=== PATIENT | female | born 1985 | race Caucasian/White ===

== ENCOUNTER → 2016-11-05 | Outpatient (CLI) | payer OTHER ==
[~2016-11-05] MED LIST: CETI10TA PO; IBUP60TA PO; LEVO300T3 PO; NORCOTAB PO; advair INH; nuvaring; ventolin inhaler
--- NOTE | 2016-11-05 09:20 | REP ---
ABDOMINAL RIGHT UPPER QUADRANT ULTRASOUND: There is no cholelithiasis, gallbladder wall thickening or pericholecystic fluid. There is no intrahepatic or extrahepatic biliary duct dilatation, the common duct is 3.7 mm diameter. The hepatic parenchymal demonstrates a 7.4 mm hyperechoic nodule in the dome of the liver. By ultrasound, this is compatible with hemangioma, however, MRI confirmation is recommended. The remainder of the hepatic parenchymal is homogeneous and unremarkable. The visualized portion of the pancreatic head is unremarkable. The right kidney is normal size measuring 11.0 cm craniocaudad. There is a nonobstructive calculus in the upper pole measuring 3.7 mm. There is no hydronephrosis. There is no renal mass or cyst. IMPRESSION: No cholelithiasis or biliary duct dilatation. 7.4 mm hyperechoic nodule in the hepatic dome compatible with hemangioma by ultrasound. MRI confirmation is recommended. Nonobstructive 3.7 mm right renal upper pole calculus. No hydronephrosis. Signed by Franklyn Duarte MD 11/06/2016 05:19 P
== END ==
LOC: M RAD 06:53
PROVIDERS: ATTEND Internal Medicine Endocrinology, Diabetes & Metabolism
DX: R11.0 Nausea (principal); N20.0 Calculus of kidney; K76.89 Other specified diseases of liver

== ENCOUNTER 2017-01-25 11:56 | Emergency (ER) | payer OTHER, MEDICAID ==
[~2017-01-25] VITALS: Ht 157.5 cm; Wt 69.9 kg
[2017-01-25] MEDS ORDERED: BREO1INH3 INH (12:08)
[2017-01-25] MEDS ORDERED: METF1000 PO (12:08)
[2017-01-25] MEDS ORDERED: TYLE500T78 PO (12:08)
[2017-01-25] MEDS ORDERED: NS 1,000 ML IV ONE (12:30)
[2017-01-25] MEDS ORDERED: ONDANSETRON 4MG/2ML VIAL (J2405) IV ONE (12:30)
[2017-01-25] MEDS ORDERED: KETOROLAC 30 MG/ML VIAL (J1885) IV ONE (12:30)
[2017-01-25 13:41] LABS: BASO % 0.8 % (0.0-1.0); EOS # 0.2 K/mm3 (0.0-0.50); EOS % 4.2 % (0.0-3.0); LARGE UNSTAINED CELL # 0.2 K/mm3 (0.0-0.4); LARGE UNSTAINED CELL % 2.5 % (0.0-4.0); LYMPH # 2.2 K/mm3 (1.5-4.5); LYMPH % 33.2 % (24.0-44.0); MEAN CORPUSCULAR HEMOGLOBIN 28.8 pg (27.0-33.0); MEAN CORPUSCULAR HGB CONC 31.7 g/dl (32.0-36.5); MONO # 0.3 K/mm3 (0.0-0.8); MONO % 4.8 % (0.0-5.0); NEUTROPHILS # 3.3 K/mm3 (1.8-7.7); NEUTROPHILS % 54.6 % (36.0-66.0); PLATELET COUNT, AUTOMATED 254 k/mm3 (150-450); RED CELL DISTRIBUTION WIDTH 13.2 % (11.5-14.5)
[2017-01-25 14:05] LABS: ALBUMIN/GLOBULIN RATIO 1.21 (1.00-1.93); ALKALINE PHOSPHATASE 66 U/L (45-117); ALT/SGPT 26 U/L (12-78); ANION GAP 8 MEQ/L (8-16); AST/SGOT 20 U/L (15-37); BILIRUBIN,DIRECT 0.1 MG/DL (0.0-0.2); BILIRUBIN,TOTAL 0.3 MG/DL (0.2-1.0); BLOOD UREA NITROGEN 9 MG/DL (7-18); CALCIUM LEVEL 8.8 MG/DL (8.5-10.1); CARBON DIOXIDE LEVEL 27 MEQ/L (21-32); CHLORIDE LEVEL 106 MEQ/L (98-107); CREATININE FOR GFR 0.76 MG/DL (0.55-1.02); GLOMERULAR FILTRATION RATE > 60.0 (>60); GLUCOSE, FASTING 86 MG/DL (70-105); POTASSIUM SERUM 3.9 MEQ/L (3.5-5.1); SODIUM LEVEL 141 MEQ/L (136-145); TOTAL PROTEIN 7.3 GM/DL (6.4-8.2)
[2017-01-25] MEDS ORDERED: BENT20TA PO (14:12)
[2017-01-25 14:35] VITALS: BP 128/69
--- NOTE | 2017-01-25 15:03 | REP ---
CT ABDOMEN AND PELVIS WITHOUT IV CONTRAST: CT abdomen and pelvis performed without oral or IV contrast, with sagittal and coronal reconstruction images performed Visualized lung bases are clear. The liver, spleen, adrenals, pancreas and kidneys are grossly unremarkable. No renal, ureteral , or bladder calculus is seen. There is on evidence of hydroureteronephrosis. There is no abdominal aortic aneurysm. No gross adenopathy is seen. No gross bowel wall thickening is seen. There is no evidence of appendicitis. No gross pelvic mass is seen. IMPRESSION: No CT evidence of renal, ureteral or bladder calculus and no evidence of hydroureteronephrosis. No evidence of appendicitis. No definite free air or free fluid. Signed by Franklyn Wade MD 01/25/2017 04:45 P
== END 2017-01-25 14:36 | disposition home or self-care (01) ==
LOC: M ED 12:52
DX: R10.11 Right upper quadrant pain (principal); R10.31 Right lower quadrant pain; E11.9 Type 2 diabetes mellitus without complications; N83.299 Other ovarian cyst, unspecified side; Z87.891 Personal history of nicotine dependence; J30.2 Other seasonal allergic rhinitis; Z79.84 Long term (current) use of oral hypoglycemic drugs; Z79.899 Other long term (current) drug therapy; Z88.1 Allergy status to other antibiotic agents; Z91.040 Latex allergy status; Z88.8 Allergy status to other drugs, medicaments and biological substances; Z91.89 Other specified personal risk factors, not elsewhere classified
CPT/HCPCS: 36415; 74176; 80048; 80076; 81001; 83690; 85025; 96374; 96375; 99282; J1885; J2405

== ENCOUNTER → 2017-03-05 | Outpatient (CLI) | payer OTHER ==
[~2017-03-05] MED LIST changes: +BENT20TA PO; +BREO1INH3 INH; +METF1000 PO; +TYLE500T78 PO
--- NOTE | 2017-03-05 16:07 | REP ---
CERVICAL SPINE COMPLETE: 03/05/2017. Clinical history: Neck pain. Comparison x-ray 05/21/2006 Findings: Eight views are provided. There is slight reversal of the normal cervical lordosis centered at C4-5 as on the previous study over a decade ago. The vertebral body heights and disc space heights are intact. No malalignment. Flexion and extension show adequate flexion, decreased extension and overall slight decreased range of motion. Neural foramina are ample bilaterally. Open-mouth view shows dens and lateral masses aligning normally. There is no instability. The C1-2 relationship stable on all views. Craniocervical junction aligns normally. Impression: 1. Reversal of lordosis and decreased range of motion of the cervical spine which may reflect some degree of spasm. 2. Airway from the nasopharynx to the larynx and subglottic trachea unremarkable. 3. No compression deformity, disc space narrowing, malalignment or other acute finding. Signed by Rob Jimenez MD 03/05/2017 04:57 P
== END ==
LOC: M LRY 15:15
PROVIDERS: ATTEND Physician Assistant
DX: M54.2 Cervicalgia (principal)

== ENCOUNTER → 2017-05-24 | Outpatient (CLI) | payer OTHER ==
[~2017-05-24] MED LIST changes: +LEVO300T21 PO; -LEVO300T3 PO; -METF1000 PO; +METF10004 PO
--- NOTE | 2017-05-24 15:44 | REP ---
Chest two views HISTORY: Chest pain Comparison: 09/19/2012 The lungs are clear. The heart is normal in size. The pulmonary vasculature is normal in appearance. The bony structure is intact. IMPRESSION: No acute disease. Signed by Lee Steven MD 05/24/2017 03:35 P
--- NOTE | 2017-05-24 16:49 | REP ---
CERVICAL SPINE, EIGHT VIEWS: HISTORY: Cervicalgia. COMPARISON: 03/05/2017 There is no acute fracture or subluxation. The intervertebral discs are normal in height. The neural foramina are patent. There is loss of the normal lordotic curve. IMPRESSION: There is no acute fracture or subluxation. Signed by Lee Steven MD 05/24/2017 04:52 P
== END ==
LOC: M LRY 14:49
PROVIDERS: ATTEND Nurse Practitioner Family
DX: R07.9 Chest pain, unspecified (principal); M54.2 Cervicalgia

== ENCOUNTER → 2018-06-30 | Outpatient (CLI) | payer OTHER | LOC: M LRY 17:52 | DX: S99.922D Unspecified injury of left foot, subsequent encounter (principal); X58.XXXD Exposure to other specified factors, subsequent encounter; Y92.9 Unspecified place or not applicable | CPT/HCPCS: 73630 ==

== ENCOUNTER → 2019-01-10 | Outpatient (CLI) | payer OTHER ==
--- NOTE | 2019-01-10 20:12 | REP ---
Clinical: Trauma. Technique: AP, lateral, bilateral oblique views right hand . Findings: The osseous structures and joint spaces are intact and normal. There is no evidence for acute fracture or dislocation. Surrounding soft tissues are unremarkable. No subcutaneous emphysema or radiodense foreign body. Impression: Age-appropriate right hand series . No acute fracture or dislocation. Electronically Signed by Bhavik Tuttle MD 01/10/2019 08:03 P
== END ==
LOC: M LRY 19:47
PROVIDERS: ATTEND Nurse Practitioner Family
DX: S69.91XA Unspecified injury of right wrist, hand and finger(s), initial encounter (principal); Y92.9 Unspecified place or not applicable; Y93.9 Activity, unspecified; Y99.9 Unspecified external cause status; X58.XXXA Exposure to other specified factors, initial encounter

== ENCOUNTER → 2019-09-16 | Outpatient (REF) | payer OTHER ==
[~2019-09-16] MED LIST changes: +HYDR-3715 PO; +IBUP600T42 PO; -IBUP60TA PO; -NORCOTAB PO
== END ==
LOC: M SFHCLERA 14:49
PROVIDERS: ATTEND Nurse Practitioner Family
DX: R50.9 Fever, unspecified (principal)

== ENCOUNTER → 2019-09-16 | Outpatient (CLI) | payer OTHER ==
--- NOTE | 2019-09-16 14:55 | REP ---
Clinical: Cough . Comparison: 05/24/2017 . Technique: PA and lateral. Findings: The mediastinum and cardiac silhouette are normal. The lung rivera are clear and without acute consolidation, effusion, or pneumothorax. The skeletal structures are intact and normal. Impression: 1. No acute cardiopulmonary process. Electronically Signed by Bhavik Tuttle MD 09/16/2019 02:46 P
== END ==
LOC: M LRY 14:34
PROVIDERS: ATTEND Nurse Practitioner Family
DX: R05 Cough (principal)

== ENCOUNTER → 2020-03-26 | Outpatient (CLI) | payer OTHER ==
--- NOTE | 2020-03-27 02:40 | REP ---
Clinical: Trauma. Technique: AP, lateral, bilateral oblique views right second digit . Findings: The osseous structures and joint spaces are intact and normal. There is no evidence for acute fracture or dislocation. Surrounding soft tissues are unremarkable. No subcutaneous emphysema or radiodense foreign body. Impression: No acute fracture or dislocation. Electronically Signed by Bhavik Tuttle MD 03/27/2020 02:30 A
== END ==
LOC: M LAB 12:54
PROVIDERS: ATTEND Physician Assistant Medical
DX: M79.644 Pain in right finger(s) (principal)

== ENCOUNTER 2021-06-12 01:42 | Emergency (ER) | payer OTHER ==
[~2021-06-12] VITALS: Ht 157.5 cm; Wt 79.9 kg
[2021-06-12 01:44] VITALS: BP 142/78
[2021-06-12] MEDS ORDERED: SING10TA32 PO (01:55)
[2021-06-12] MEDS ORDERED: LEVO150T42 PO (01:55)
[2021-06-12] MEDS ORDERED: LOSA50TA5 PO (01:55)
== END 2021-06-12 08:02 | disposition left against medical advice (07) ==
LOC: M ED 01:42
DX: Z53.21 Procedure and treatment not carried out due to patient leaving prior to being seen by health care provider (principal)

== ENCOUNTER 2021-07-26 14:54 | Emergency (ER) | payer OTHER ==
[~2021-07-26 14:54] MED LIST changes: +LEVO150T42 PO; +LOSA50TA5 PO; +SING10TA32 PO
[2021-07-26] MEDS ORDERED: ETOMIDATE INJ 20MG/10ML VIAL ONE (14:55)
[2021-07-26] MEDS ORDERED: SUCCINYLCHOLINE 100 MG/5 ML SYRINGE (J0330) ONE (14:55)
[2021-07-26] MEDS ORDERED: LORazepam 2 MG/ML VIAL As Ordered ONE ×2 (15:01→16:43)
[2021-07-26 15:52] LABS: BASO # 0.1 10^3/uL (0.0-0.2); BASO % 1.5 % (0.0-1.0); EOS # 0.6 10^3/uL (0.0-0.5); EOS % 7.9 % (0.0-3.0); HEMATOCRIT 39.8 % (36.0-47.0); HEMOGLOBIN 13.1 g/dl (12.0-15.5); LYMPH # 3.4 10^3/uL (1.5-5.0); LYMPH % 41.7 % (24.0-44.0); MEAN CORPUSCULAR HEMOGLOBIN 32.3 pg (27.0-33.0); MEAN CORPUSCULAR HGB CONC 32.9 g/dl (32.0-36.5); MONO # 0.4 10^3/uL (0.0-0.8); MONO % 5.3 % (2.0-8.0); NEUTROPHILS # 3.5 10^3/uL (1.5-8.5); NEUTROPHILS % 43.4 % (36.0-66.0); PLATELET COUNT, AUTOMATED 387 10^3/uL (150-450); RED BLOOD COUNT 4.06 10^6/uL (4.00-5.40); WHITE BLOOD COUNT 8.1 10^3/uL (4.0-10.0)
--- NOTE | 2021-07-26 16:08 | REP ---
INDICATION: headache, sudden onset COMPARISON: 03/22/2012 TECHNIQUE: Axial noncontrast images from the skull base to the thoracic inlet with coronal reformations. This CT examination was performed using the following dose reduction techniques: Automated exposure control, adjustment of mA and/or kv according to the patient's size, and use of iterative reconstruction technique. FINDINGS: High density outlining the [id number] and bilateral sulci is consistent with an acute subarachnoid hemorrhage. No evidence for mass or mass effect. No significant vasogenic edema. Ventricles and cisterns are symmetric and patent. No extra-axial fluid collection. Calvarium is intact. Paranasal sinuses demonstrate partial mucoperiosteal changes related to sinusitis. IMPRESSION: Acute subarachnoid hemorrhage. <Electronically signed by Bhavik Tuttle > 07/26/21 [id number]
[2021-07-26] MEDS ORDERED: niCARdipine IV 40 MG in IV 1 EA IV SCH (16:10)
[2021-07-26] MEDS ORDERED: levETIRAcetam INJection 4,500 MG in D5W 100 ML IV ONE (16:10)
[2021-07-26] MEDS ORDERED: levETIRAcetam INJection 2,000 MG in D5W 100 ML IV ONE (16:15)
[2021-07-26 16:23] LABS: ACETAMINOPHEN LEVEL 6.6 UG/ML (10.0-30.0); ALBUMIN 2.8 GM/DL (3.2-5.2); ALT/SGPT 15 U/L (12-78); BILIRUBIN,DIRECT 0.1 MG/DL (0.0-0.2); BILIRUBIN,TOTAL 0.4 MG/DL (0.2-1.0); FREE T4 0.74 NG/DL (0.76-1.46); LIPASE 106 U/L (73-393); SALICYLATE LEVEL < 1.7 MG/DL (5.0-30.0); TOTAL PROTEIN 5.6 GM/DL (6.4-8.2)
[2021-07-26 16:25] LABS: ETHYL ALCOHOL (ETHANOL) < 0.003 % (0.000-0.010)
[2021-07-26 16:45] LABS: INR 0.93; PROTHROMBIN TIME 12.9 SECONDS (12.7-14.5)
[2021-07-26 16:46] LABS: PARTIAL THROMBOPLASTIN TIME 25.8 SECONDS (25.9-37.0)
[2021-07-26] MEDS ORDERED: PROPOFOL 1,000 MG/100 ML VIAL As Ordered ONE (16:53)
[2021-07-26] MEDS ORDERED: ONDANSETRON 4MG/2ML VIAL As Ordered ONE (17:32)
[2021-07-26] MEDS ORDERED: ONDANSETRON 4MG/2ML VIAL IV ONE (17:40)
[2021-07-26 17:46] LABS: RSV AMPLIFICATION NEGATIVE (NEGATIVE)
[2021-07-26 17:55] VITALS: BP 129/80
--- NOTE | 2021-07-26 19:45 | ECGEPIP ---
[facility] - ED Test Date: 2021-07-26 Pat Name: RADHA JORDAN Department: Room: - Gender: Female [employer]: JAZMIN : 1985 Requested By: Simeon Matson Order Number: [id number] Reading MD: Simeon Matson Measurements Intervals [place] Rate: 57 P: 67 TN: 180 QRS: 44 QRSD: 102 T: 47 QT: 522 QTc: 508 Interpretive Statements Sinus bradycardia Prolonged QT Nonspecific ST T wave changes No prior ECG for comparison Electronically Signed on 07-26-2021 19:44:52 EDT by Simeon Matson
== END 2021-07-26 18:16 | disposition short-term general hospital (02) ==
LOC: M ED 14:54
DX: S06.6X0A Traumatic subarachnoid hemorrhage without loss of consciousness, initial encounter (principal); M54.2 Cervicalgia; V19.9XXA Pedal cyclist (driver) (passenger) injured in unspecified traffic accident, initial encounter; R56.9 Unspecified convulsions; R00.1 Bradycardia, unspecified; E11.9 Type 2 diabetes mellitus without complications; E03.9 Hypothyroidism, unspecified; I10 Essential (primary) hypertension; Z88.1 Allergy status to other antibiotic agents; Z91.040 Latex allergy status; Z79.899 Other long term (current) drug therapy; Z79.890 Hormone replacement therapy
CPT/HCPCS: 70450; 80047; 80076; 80143; 82077; 83690; 84439; 84443; 84702; 85025; 85610; 85730; 87631; 93005; 96374; 96375; 99284; J0330; J1953; J2405

== ENCOUNTER → 2021-10-22 | Outpatient (CLI) | payer OTHER | LOC: M WHC 13:45 | PROVIDERS: ATTEND Physician Assistant | DX: R92.8 Other abnormal and inconclusive findings on diagnostic imaging of breast (principal); Z12.31 Encounter for screening mammogram for malignant neoplasm of breast | CPT/HCPCS: 76642; 77066; G0279 ==

== ENCOUNTER → 2022-12-07 | Outpatient (CLI) | payer OTHER | LOC: M RAD 08:04 | PROVIDERS: ATTEND Physician Assistant | DX: H57.11 Ocular pain, right eye (principal) ==

== ENCOUNTER 2023-01-23 04:55 | Emergency (ER) | payer OTHER ==
[~2023-01-23] VITALS: Ht 157.5 cm; Wt 86.4 kg
[2023-01-23 04:55] VITALS: BP 147/93
[~2023-01-23 04:55] MED LIST changes: +MONT-5 PO; -SING10TA32 PO
[2023-01-23] MEDS ORDERED: NS 1,000 ML IV ONE (05:50)
[2023-01-23] MEDS ORDERED: KETOROLAC 30 MG/ML 1ML VIAL IV ONE (05:50)
[2023-01-23 06:29] LABS: BASO # 0.1 10^3/uL (0.0-0.2); BASO % 1.1 % (0.0-1.0); EOS # 0.4 10^3/uL (0.0-0.5); EOS % 5.9 % (0.0-3.0); HEMATOCRIT 40.8 % (36.0-47.0); HEMOGLOBIN 13.1 g/dl (12.0-15.5); LYMPH % 29.9 % (24.0-44.0); MEAN CORPUSCULAR HGB CONC 32.1 g/dl (32.0-36.5); MEAN CORPUSCULAR VOLUME 96.7 fl (80.0-96.0); MONO # 0.3 10^3/uL (0.0-0.8); MONO % 4.5 % (2.0-8.0); NEUTROPHILS # 3.9 10^3/uL (1.5-8.5); NEUTROPHILS % 58.3 % (36.0-66.0); PLATELET COUNT, AUTOMATED 292 10^3/uL (150-450); RED BLOOD COUNT 4.22 10^6/uL (4.00-5.40); WHITE BLOOD COUNT 6.7 10^3/uL (4.0-10.0)
[2023-01-23 06:50] LABS: LIPASE 32 U/L (12-53)
[2023-01-23 06:52] LABS: ALBUMIN 4.1 G/DL (3.2-5.2); ALKALINE PHOSPHATASE 56 U/L (46-116); ALT/SGPT 16 U/L (7.0-40); AST/SGOT 21 U/L (<34); BILIRUBIN,TOTAL 0.3 MG/DL (0.3-1.2); BLOOD UREA NITROGEN 8 MG/DL (9-23); CALCIUM LEVEL 8.7 MG/DL (8.5-10.1); CARBON DIOXIDE LEVEL 24 MMOL/L (20-31); CHLORIDE LEVEL 110 MMOL/L (98-107); CREATININE FOR GFR 0.71 MG/DL (0.55-1.30); GLOMERULAR FILTRATION RATE > 60.0 (>60); GLUCOSE, FASTING 90 MG/DL (60-100); SODIUM LEVEL 142 MMOL/L (136-145); TOTAL PROTEIN 7.1 G/DL (5.7-8.2)
[2023-01-23] MEDS ORDERED: ISOVUE-370 76% 100ML VIAL As Ordered ONE (06:58)
[2023-01-23 07:18] LABS: CK-MB VALUE MASS < 1.0 NG/ML (<3.6)
[2023-01-23 07:19] LABS: CPK CREATINE PHOSPHOKINASE 179 U/L (34-145); MB/CK RELATIVE INDEX 0.55 (< OR =4)
== END 2023-01-23 09:40 | disposition home or self-care (01) ==
LOC: M ED 04:55
DX: S20.20XA Contusion of thorax, unspecified, initial encounter (principal); S16.1XXA Strain of muscle, fascia and tendon at neck level, initial encounter; V48.5XXA Car driver injured in noncollision transport accident in traffic accident, initial encounter; Y92.410 Unspecified street and highway as the place of occurrence of the external cause
CPT/HCPCS: 70450; 70498; 71260; 72190; 80053; 82550; 82553; 83605; 83690; 83880; 84484; 85025; 96374; 99284; J1885; Q9967

== ENCOUNTER → 2023-04-13 | Outpatient (CLI) | payer OTHER | LOC: M WUC 14:50 | PROVIDERS: ATTEND Physician Assistant | DX: M54.12 Radiculopathy, cervical region (principal) ==

== ENCOUNTER → 2023-11-05 | Outpatient (REF) | payer OTHER | LOC: M LAB REF 14:32 | PROVIDERS: ATTEND Surgery | DX: L72.3 Sebaceous cyst (principal) ==

== ENCOUNTER 2024-02-06 10:19 | Emergency (ER) | payer OTHER ==
[~2024-02-06] VITALS: Ht 157.5 cm; Wt 76.4 kg
[2024-02-06] MEDS ORDERED: VENTAER INH (10:33)
[2024-02-06] MEDS ORDERED: LOPE1CAP5 (10:33)
[2024-02-06] MEDS ORDERED: SEMA1PEN4 (10:33)
[2024-02-06] MEDS ORDERED: ATOM100C6 (10:33)
[2024-02-06] MEDS ORDERED: LEVO112T2 (10:33)
[2024-02-06] MEDS ORDERED: ONDA4TAB6 (10:33)
[2024-02-06] MEDS ORDERED: LOSA100T8 (10:33)
[2024-02-06 12:03] LABS: BASO % 0.3 % (0.0-1.0); EOS # 1.2 10^3/uL (0.0-0.5); EOS % 10.4 % (0.0-3.0); HEMATOCRIT 49.8 % (36.0-47.0); HEMOGLOBIN 16.7 g/dl (12.0-15.5); LYMPH # 2.7 10^3/uL (1.5-5.0); LYMPH % 22.8 % (24.0-44.0); MEAN CORPUSCULAR HEMOGLOBIN 30.5 pg (27.0-33.0); MEAN CORPUSCULAR HGB CONC 33.5 g/dl (32.0-36.5); MONO # 0.5 10^3/uL (0.0-0.8); MONO % 4.7 % (2.0-8.0); NEUTROPHILS # 7.1 10^3/uL (1.5-8.5); NEUTROPHILS % 61.2 % (36.0-66.0); PLATELET COUNT, AUTOMATED 352 10^3/uL (150-450); RED BLOOD COUNT 5.47 10^6/uL (4.00-5.40); WHITE BLOOD COUNT 11.6 10^3/uL (4.0-10.0)
[2024-02-06 12:08] VITALS: BP 122/70; TEMP 98.4; O2SAT 100
[2024-02-06] MEDS: NS 1,000 ML IV ONE (12:19)
[2024-02-06] MEDS ORDERED: ISOVUE-370 76% 100ML VIAL As Ordered ONE (12:19)
[2024-02-06 12:29] LABS: ALBUMIN 3.9 G/DL (3.2-5.2); BILIRUBIN,DIRECT 0.1 MG/DL (<0.4); BILIRUBIN,TOTAL 0.4 MG/DL (0.3-1.2); TOTAL PROTEIN 7.1 G/DL (5.7-8.2)
[2024-02-06] MEDS ORDERED: AMOX875T2 PO (14:13)
== END 2024-02-06 14:46 | disposition home or self-care (01) ==
LOC: M ED 10:19
DX: A09 Infectious gastroenteritis and colitis, unspecified (principal); R59.0 Localized enlarged lymph nodes; I10 Essential (primary) hypertension; Z88.8 Allergy status to other drugs, medicaments and biological substances; Z91.040 Latex allergy status; Z79.51 Long term (current) use of inhaled steroids; Z79.2 Long term (current) use of antibiotics; Z79.899 Other long term (current) drug therapy
CPT/HCPCS: 36415; 74177; 80047; 80076; 81001; 83605; 83690; 84702; 85025; 87040; 87088; 96360; 96361; 99284; Q9967

== ENCOUNTER → 2024-03-08 | Outpatient (CLI) | payer OTHER ==
[~2024-03-08] MED LIST changes: +AMOX875T2 PO; +ATOM100C6; +LEVO112T2; +LIDOCAINE 1% MDV 20ML VIAL As Ordered ONE; +LOPE1CAP5; +LOSA100T8; +ONDA4TAB6; +SEMA1PEN4; +VENTAER INH
[2024-03-08 12:20] VITALS: TEMP 98.8
[2024-03-08 13:10] VITALS: BP 113/76; O2SAT 100
== END ==
LOC: M IRPRO 12:09
PROVIDERS: ATTEND Surgery
DX: R19.05 Periumbilic swelling, mass or lump (principal)

== ENCOUNTER → 2024-10-19 | Outpatient (CLI) | payer OTHER ==
[~2024-10-19] MED LIST changes: -LIDOCAINE 1% MDV 20ML VIAL As Ordered ONE; +ONDA-282; -ONDA4TAB6
[2024-10-19 18:40] LABS: HEMATOCRIT 43.4 % (36.0-47.0); HEMOGLOBIN 14.2 g/dl (12.0-15.5); MEAN CORPUSCULAR HEMOGLOBIN 30.7 pg (27.0-33.0); MEAN CORPUSCULAR HGB CONC 32.7 g/dl (32.0-36.5); MEAN CORPUSCULAR VOLUME 93.9 fl (80.0-96.0); PLATELET COUNT, AUTOMATED 292 10^3/uL (150-450); RED BLOOD COUNT 4.62 10^6/uL (4.00-5.40)
[2024-10-19 19:13] LABS: ALBUMIN 4.1 G/DL (3.2-5.2); ALKALINE PHOSPHATASE 75 U/L (35-104); ALT/SGPT 17 U/L (7.0-40); AST/SGOT 17 U/L (<34); BILIRUBIN,TOTAL 0.3 MG/DL (0.3-1.2); BLOOD UREA NITROGEN 9 MG/DL (9-23); CALCIUM LEVEL 9.9 MG/DL (8.5-10.1); CARBON DIOXIDE LEVEL 28 MMOL/L (20-31); CHLORIDE LEVEL 102 MMOL/L (98-107); CHOLESTEROL LEVEL 180 MG/DL (<200); CHOLESTEROL RISK RATIO 2.36 (<5); CREATININE FOR GFR 0.72 MG/DL (0.55-1.30); GLOMERULAR FILTRATION RATE > 60.0 (>58); GLUCOSE, FASTING 68 MG/DL (60-100); HDL CHOLESTEROL 76.2 MG/DL (>40); LDL CHOLESTEROL 85.8 MG/DL (<100); NON-HDL-C 103.8 MG/DL; POTASSIUM SERUM 3.4 MMOL/L (3.5-5.1); SODIUM LEVEL 141 MMOL/L (136-145); TOTAL PROTEIN 7.8 G/DL (5.7-8.2); TRIGLYCERIDES LEVEL 90 MG/DL (<150)
[2024-10-20 07:17] LABS: WHITE BLOOD COUNT 6.3 10^3/uL (4.0-10.0)
== END ==
LOC: M WUC 13:13
PROVIDERS: ATTEND Physician Assistant
DX: I10 Essential (primary) hypertension (principal); E03.9 Hypothyroidism, unspecified; E78.5 Hyperlipidemia, unspecified

== ENCOUNTER → 2025-06-27 | Outpatient (CLI) | payer OTHER | LOC: M RAD 09:37 | PROVIDERS: ATTEND Obstetrics & Gynecology | DX: N80.9 Endometriosis, unspecified (principal); Z90.710 Acquired absence of both cervix and uterus ==

== ENCOUNTER → 2025-06-27 | Outpatient (CLI) | payer OTHER ==
[2025-06-27 18:04] LABS: PLATELET COUNT, AUTOMATED 346 10^3/uL (150-450)
[2025-06-27 18:28] LABS: ALT/SGPT 15 U/L (7.0-40); AST/SGOT 20 U/L (<34); CALCIUM LEVEL 9.5 MG/DL (8.5-10.1); CARBON DIOXIDE LEVEL 25 MMOL/L (20-31); CHLORIDE LEVEL 103 MMOL/L (98-107); CHOLESTEROL LEVEL 196 MG/DL (<200); CHOLESTEROL RISK RATIO 2.52 (<5); CREATININE FOR GFR 0.81 MG/DL (0.55-1.30); GLOMERULAR FILTRATION RATE > 90.0 (>58); LDL CHOLESTEROL 105.0 MG/DL (<100); NON-HDL-C 118.4 MG/DL; POTASSIUM SERUM 3.7 MMOL/L (3.5-5.1); SODIUM LEVEL 140 MMOL/L (136-145); TRIGLYCERIDES LEVEL 67 MG/DL (<150)
== END ==
LOC: M WUC 13:15
PROVIDERS: ATTEND Physician Assistant
DX: S23.41XA Sprain of ribs, initial encounter (principal); I10 Essential (primary) hypertension; E78.5 Hyperlipidemia, unspecified; E03.9 Hypothyroidism, unspecified; X58.XXXA Exposure to other specified factors, initial encounter; Y92.9 Unspecified place or not applicable; Y93.9 Activity, unspecified; Y99.9 Unspecified external cause status

== ENCOUNTER → 2025-08-07 | Outpatient (CLI) | payer OTHER ==
[2025-08-07 12:42] LABS: APPEARANCE, URINE HAZY (CLEAR); BACTERIA, URINE AUTO 2+ (NEGATIVE); BILIRUBIN, URINE AUTO NEGATIVE (NEGATIVE); BLOOD, URINE BLOOD 1+ (NEGATIVE); GLUCOSE, URINE (UA) AUTO NEGATIVE (NEGATIVE); KETONE, URINE AUTO NEGATIVE (NEGATIVE); LEUKOCYTE ESTERASE, URINE AUTO 1+ (NEGATIVE); NITRITE, URINE AUTO NEGATIVE (NEGATIVE); PROTEIN, URINE AUTO NEGATIVE (NEGATIVE); RBC, URINE AUTO 0 /HPF (0-3); SPECIFIC GRAVITY URINE AUTO 1.015 (1.002-1.035); SQUAMOUS EPITHELIAL CELL UR AU 3 /HPF (0-6); UROBILINOGEN, URINE AUTO 2.0 mg/dL (0.0-2.0); WBC, URINE AUTO 52 /HPF (0-3)
== END ==
LOC: M RAD 11:13
PROVIDERS: ATTEND Physician Assistant Medical
DX: N39.0 Urinary tract infection, site not specified (principal); R10.31 Right lower quadrant pain